=== PATIENT | female | born 1995 | race Caucasian/White ===

== ENCOUNTER 2021-02-15 09:08 | Emergency (ER) | payer BC ==
[2021-02-15 09:30] VITALS: BP 119/80; PULSE 91
[2021-02-15] MEDS: Promethazine 25 MG/ML SDV IM ONE (09:37)
[2021-02-15] MEDS: Morphine 2 MG/ML SYRINGE IM ONE (09:38)
--- NOTE | 2021-02-15 09:46 | EDM.PDOC ---
<Deena Clarke - Last Filed: 02/15/21 09:45> ED HPI GENERAL MEDICAL PROBLEM - General Chief Complaint: Headache Stated Complaint: migraine Time Seen by Provider: 02/15/21 09:20 Source of Information: Reports: Patient History Limitations: Reports: No Limitations Headache Pain Score (Numeric/FACES): 10 - Related Data Allergies Allergy/AdvReac Type Severity Reaction Status Date / Time nitrofurantoin Allergy Rash Verified 02/15/21 09:12 [From Macrobid] Home Meds: Home Meds Levonorgestrel/Ethin.estradiol [Falmina-28 Tablet] 1 each PO DAILY 01/31/17 [History] Escitalopram Oxalate 10 mg PO DAILY 07/13/18 [History] SUMAtriptan [Imitrex] 50 mg PO DAILY PRN 02/15/21 [History] Past Medical History - Past Health History Medical/Surgical History: Denies Medical/Surgical History Neurological History: Reports: Migraines Psychiatric History: Reports: Anxiety - Past Surgical History HEENT Surgical History: Reports: Other (See Below) Other HEENT Surgeries/Procedures: wisdom teeth removed Social & Family History - Family History Family Medical History: No Pertinent Family History - Tobacco Use Tobacco Use Status *Q: Never Tobacco User - Caffeine Use Caffeine Use: Reports: None Departure - Departure Disposition: Home, Self-Care 01 Clinical Impression: Migraine - Discharge Information Instructions: Migraine Headache, [id number] Forms: ED Department Discharge Additional Instructions: Stay hydrated and drink plenty of fluids. Get rest today. Continue as needed medications previously prescribed by your provider. Keep follow-up appointments. Follow-up with primary care or neurology for further care. Call or return if symptoms worsen or do not improve. Sepsis Event Note (ED) - Evaluation Sepsis Screening Result: No Definite Risk <Edin Deleon - Last Filed: 02/15/21 10:23> ED HPI GENERAL MEDICAL PROBLEM - History of Present Illness INITIAL COMMENTS - FREE TEXT/NARRATIVE: Oli is a 25 year old female that presents to the ED with her mother with complaints of migraine headache. Reports that her migraine headache started about for days ago. Pain located at base of the head and has pain throughout her head. Reports pressure behind the eyes. States that she had taken ibuprofen, Imitrex, and Tramadol without symptom relief. Also stated she has not taken any medications in the past 2 days. Denies vision disturbances. Reports long history of migraines and has been seen by neurology in the past. Medications have not been effective in controlling her migraines. Reports associated nausea without vomiting. Does have photosensitivity. She states that she has had adequate oral intake of food and fluids. Rates pain 12/29. Onset: Gradual Onset Date: 02/11/21 Duration: Day(s): (4 days), Getting Worse Location: Reports: Head, Generalized Quality: Reports: Pressure Severity: Severe Improves with: Reports: None Worsens with: Reports: None Associated Symptoms: Reports: Nausea/Vomiting. Denies: Confusion, Chest Pain, Cough, Fever/Chills Treatments [employer]: Reports: NSAIDS, Other Medication(s) (Tramadol and Imitrex) Past Medical History - Past Health History Medical/Surgical History: Denies Medical/Surgical History ED ROS GENERAL - Review of Systems Review Of Systems: See Below Constitutional: Denies: Fever, Chills, Malaise HEENT: Denies: Eye Pain, Vision Change Respiratory: Reports: No Symptoms Cardiovascular: Reports: No Symptoms Endocrine: Reports: No Symptoms GI/Abdominal: Reports: Nausea. Denies: Vomiting Musculoskeletal: Reports: Neck Pain Neurological: Reports: Headache - Physical Exam Exam: See Below Exam Limited By: No Limitations General Appearance: Alert, WD/WN, No Apparent Distress Head Exam: Atraumatic, Normocephalic, Facial Tenderness Neck: Supple, Full Range of Motion, Tender Lateral (bilateral neck tenderness at base of occiput) Respiratory/Chest: No Respiratory Distress, Lungs Clear, Normal Breath Sounds Cardiovascular: Regular Rate, Rhythm, No Gallop, No JVD, No Murmur (Female) Exam: Deferred Rectal (Female) Exam: Deferred Neuro Exam (Abbreviated): Alert, Oriented, CN II-XII Intact, Normal Cognition, Normal Gait Psychiatric: Normal Affect, Normal Mood Skin Exam: Warm, Dry, Intact, Normal Color Course - Vital Signs Last Recorded V/S: Last Vital Signs Temp 98 F 02/15/21 09:25 Pulse 91 02/15/21 09:25 Resp 18 02/15/21 09:25 BP 119/80 02/15/21 09:25 Pulse Ox 97 02/15/21 09:25 - Orders/Labs/Meds Meds: Medications Discontinued Medications Generic Name Dose Route Start Last Admin Trade Name Win PRN Reason Stop Dose Admin Morphine Sulfate 2 mg 02/15/21 09:24 02/15/21 09:38 Morphine 2 Mg/Ml Syringe IM 02/15/21 09:25 2 mg ONETIME ONE Administration Promethazine HCl 25 mg 02/15/21 09:25 02/15/21 09:37 Promethazine 25 Mg/Ml Sdv IM 02/15/21 09:26 25 mg ONETIME ONE Administration - Re-Assessments/Exams Free Text/Narrative Re-Assessment/Exam: This is a 25 year old female that was evaluated for migraine headache. Patient has history of migraine and states this is similar to past episodes. Has been trialed on many medications without relief of these headaches. Patient's prn medication has not relieved symptoms in the past 4 days. Traditional migraine therapies were discussed with patient and mother. After discussion and assessment of previous medication that have been ineffective, Morphine 2 mg IM and Phenergan 25 mg IM was ordered and administered. Patient has an appointment in April with neurology for further evaluation and treatment of recurrent migraines. Departure - Departure Time of Disposition: 09:46 Condition: Good - Discharge Information *PRESCRIPTION DRUG MONITORING PROGRAM REVIEWED*: No *COPY OF PRESCRIPTION DRUG MONITORING REPORT IN PATIENT NEGAR: No Sepsis Event Note (ED) - Focused Exam Vital Signs: Vital Signs Temp Pulse Resp BP Pulse Ox 02/15/21 09:25 98 F 91 18 119/80 97
== END 2021-02-15 09:55 | disposition home or self-care (01) ==
LOC: CC.ED 09:08
DX: G43.909 Migraine, unspecified, not intractable, without status migrainosus (principal); Z88.1 Allergy status to other antibiotic agents
CPT/HCPCS: 96372; 99283; J2270; J2550